=== PATIENT | male | born 1990 | race Caucasian/White ===

== ENCOUNTER 2020-03-05 16:46 | Outpatient (CLI) | payer OTHER ==
[~2020-03-05 16:46] MED LIST: ADVIL200 M1 PO; BUCALSEP SPRAY30 ML MM; NASONEX17 GM NS
== END 2020-03-05 16:49 | disposition home or self-care (01) ==
LOC: RAD 16:46
PROVIDERS: ATTEND Colon & Rectal Surgery
DX: L05.01 Pilonidal cyst with abscess (principal)

== ENCOUNTER 2020-03-19 06:50 | Day surgery (SDC) | payer BC | END 2020-03-19 18:30 | disposition home or self-care (01) | LOC: CIR.AMB 06:50 | PROVIDERS: ATTEND Colon & Rectal Surgery | DX: L05.01 Pilonidal cyst with abscess (principal); Z20.828 Contact with and (suspected) exposure to other viral communicable diseases ==